=== PATIENT | male | born 1975 | race Caucasian/White ===

== ENCOUNTER 2018-09-22 07:00 | Day surgery (SDC) | payer OTHER ==
--- NOTE | 2018-09-21 21:53 | NUR ---
SE RECIBE PTE ALERTA Y ORIENTADO X3 ESFERAS. REFIERE HEMORROIDES HACE 5 LITTLE. PTE INDICA REFERIDO POR DR Chacha [place] PARA OPERACION MANANA EN LA MANANA. SE UBICA EN AREA DE OBSERVACION.
[~2018-09-22] VITALS: Ht 167.6 cm; Wt 81.6 kg
--- NOTE | 2018-09-22 00:21 | NUR ---
PACIENTE ALERTA Y ORIENTADO EVALUADO POR EL DR. RODRIGUEZ SE ORIENTA A PACIENTE SOBRE TRATAMEINTO MEDICO SE EXTRAEN MUESTRAS DE CHANI JOSE R ORDEN MEDICA BAJO MEDIDAS ASEPTICAS.
[~2018-09-22 07:00] MED LIST: COZAAR50 MG; FORTAMET1000 MG; GLUCOTROL XL5 MG; SYNTHROID125 MCG; TOPROL XL50 MG
[2018-09-23] MEDS ORDERED: COLACE100 MG PO (07:56)
[2018-09-23] MEDS ORDERED: PERCOCET 5-3251 EACH PO (07:56)
== END 2018-09-23 08:00 | disposition home or self-care (01) ==
LOC: CIR.AMB 07:00 → EDSTATUS 11:00 → CIR.AMB 09-23 08:00 → SURG 09-23 11:38
DX: K64.5 Perianal venous thrombosis (principal); K62.5 Hemorrhage of anus and rectum; K64.0 First degree hemorrhoids; K62.0 Anal polyp; I10 Essential (primary) hypertension; E11.9 Type 2 diabetes mellitus without complications; E03.8 Other specified hypothyroidism